=== PATIENT | female | born 1955 | race Caucasian/White ===

== ENCOUNTER 2017-01-30 21:09 | Emergency (ER) | payer OTHER ==
[~2017-01-30] VITALS: Ht 170.2 cm; Wt 139.7 kg
[~2017-01-30 21:09] MED LIST: ADVAIR HFA120 INHALA IH; ALBUTEROL SULF8.5 GM IH; AMOXICILLIN500 M1 PO; AMOXICILLIN500 MG PO; ANAPROX DS550 M1 PO; FENOFIBRATE160 M1 PO; FLOMAX0.4 MG PO; GLYBURIDE5 MG PO; IBUPROFEN800 MG PO; JANUVIA100 MG PO; KEFLEX500 MG PO; LEVAQUIN750 MG PO; LEVOTHYROXINE100 MCG PO; LISINOPRIL30 MG PO; LORATADINE10 M2 PO; MEDROL DOSEPAK4 MG PO; METFORMIN HCL1000 MG PO; METFORMIN HCL500 MG PO; MOTRIN800 MG PO; MUCINEX DM ER1 EACH PO; NAPROSYN375 MG PO; NAPROXEN SODIU550 MG PO; NORCO 5/3251 TABLET PO; PERCOCET 5/31 TABLET PO; PRAVASTATIN SOD80 MG PO; PREDNISONE10 MG PO; PREDNISONE20 MG PO; PROAIR HFA8.5 GM IH; ROBITUSSIN AC,T10 ML PO; SIMVASTATIN40 MG PO; SPIRIVA RESPIMAT4 GM IH; TAMIFLU75 MG PO; TYLENOL WITH C1 EACH PO; VENTOLIN HFA18 GM IH; VICODIN,LORT1 TABLET PO; ZOFRAN ODT4 MG PO
[2017-01-30 21:56] LABS: HEMATOCRIT 36.5 % (36.0-46.0); MCH 30.9 PG (29.0-34.0); MCHC 32.1 G/DL (30.0-36.0); MCV 96.3 FL (83-99); MEAN PLAT.VOLUME 9.2 uM^3 (9.5-12.4); PLATELET COUNT 196 K/uL (156-360); RBC DIS.WIDTH-CV 12.8 % (11.8-14.6); RBC DIS.WIDTH-SD 45.4 % (39-53); RED BLOOD COUNT 3.79 M/uL (3.80-5.20); WHITE BLOOD COUNT 8.5 K/uL (4.1-10.2)
[2017-01-30 22:05] LABS: CHLORIDE 107 mEq/L (99-109); POTASSIUM 3.9 mEq/L (3.7-5.4); SODIUM 141 mEq/L (136-147)
[2017-01-30 22:07] LABS: GLUCOSE 102 mg/dL (70-99)
[2017-01-30 22:08] LABS: ANION GAP 13 MEQ/L (2-14)
[2017-01-30 22:11] LABS: GFR ESTIMATE (CALCULATED) 44 mL/min/
[2017-01-30 22:12] LABS: UREA NITROGEN (BUN) 16 mg/dL (9-23)
[2017-01-30 22:16] LABS: ADD MIUA? YES; BILIRUBIN NEGATIVE; BLOOD LARGE; COLOR YELLOW ((YELLOW)); GLUCOSE (STRIP) NEGATIVE; KETONES NEGATIVE; LEUKOCYTES MODERATE; NITRITE NEGATIVE; PROTEIN (STRIP) 30; SPECIFIC GRAVITY 1.018 (1.000-1.030)
[2017-01-30 22:55] LABS: BACTERIA RARE /HPF; CASTS NONE SEEN /LPF; CRYSTALS NONE SEEN; EPITHELIAL CELLS 1+ /HPF; MUCUS NONE SEEN /LPF; RED BLOOD CELLS TNTC /HPF (0-5); WHITE BLOOD CELLS 15-20 /HPF (0-5)
[2017-01-30] MEDS ORDERED: CIPRO500 MG PO (23:16)
[2017-01-30 23:29] VITALS: BP 129/77
== END 2017-01-30 23:31 | disposition home or self-care (01) ==
LOC: EME 21:09
PROVIDERS: Physician Assistant
DX: R50.9 Fever, unspecified (principal); I10 Essential (primary) hypertension; E11.9 Type 2 diabetes mellitus without complications; E78.5 Hyperlipidemia, unspecified; J44.9 Chronic obstructive pulmonary disease, unspecified; E89.0 Postprocedural hypothyroidism; Z86.73 Personal history of transient ischemic attack (TIA), and cerebral infarction without residual deficits; Z87.442 Personal history of urinary calculi; Z96.651 Presence of right artificial knee joint; Z87.891 Personal history of nicotine dependence; Z90.710 Acquired absence of both cervix and uterus; Z90.49 Acquired absence of other specified parts of digestive tract
CPT/HCPCS: 71020; 80048; 81003; 85027; 87077; 87086; 87186; 99281; 99284